=== PATIENT | male | born 1955 | race Caucasian/White ===

== ENCOUNTER 2016-05-11 08:54 | Emergency (ER) | payer MEDICAID, MEDICARE ==
[~2016-05-11] VITALS: Ht 167.6 cm; Wt 72.7 kg
[~2016-05-11 08:54] MED LIST: ASPI-973 PO; CARI350T PO; HYDR-4003 PO; IBUP-1827 PO; OMEP20TA86 PO; OXYC1TAB24 PO; TAMS0.4C98 PO
[2016-05-11 08:57] VITALS: BP 170/102; PULSE 98; RESP 18; O2SAT 97
[2016-05-11 10:01] LABS: BASOPHILS % (AUTO) 0.3 % (0-3); EOSINOPHILS % (AUTO) 0.9 % (0-5); MONOCYTES % (AUTO) 6.8 % (4-12); Mean Corpuscular Hemoglobin 29.2 pg (27.0-35.0); Mean Corpuscular Volume 83.7 fL (81-100); NEUTROPHILS % (AUTO) 70.4 % (40-74); Platelet Count 272 bil/L (150-400)
[2016-05-11 10:24] LABS: TROPONIN T 0.01 ug/L (0.0-0.011)
--- NOTE | 2016-05-11 10:31 | DRSVH ---
PROCEDURE: X-RAY CHEST, TWO VIEWS ([id number]) INDICATIONS: chest pain TECHNIQUE: 2 views of the chest were acquired. COMPARISON: None. FINDINGS: Surgical changes and devices: None. Lungs and pleura: No pleural effusions or pneumothorax. Lungs are clear. Mediastinum: Mediastinal contours are normal. Heart size is normal. Bones and chest wall: No suspicious bony abnormalities. Soft tissues appear unremarkable. IMPRESSION: No abnormalities found. Dictated by: Isidro Khoury M.D. on 05/11/2016 at 10:29 Approved by: Isidro Khoury M.D. on 05/11/2016 at 10:29
[2016-05-11 10:35] LABS: Magnesium 1.7 mg/dL (1.6-2.6)
[2016-05-11 11:43] VITALS: BP 168/72; PULSE 68; RESP 16; O2SAT 99
--- NOTE | 2016-05-11 11:52 | ED.REPORT ---
HPI-General Illness Date of Service May 11, 2016 ED Provider: EdgardoAmish DO 60yoM with past medical history remarkable for PVD with vascular stenting and revisions to his right leg with chronic claudication presents with increasing leg discomfort as well as chest pain for the last week or more. The patient states that he spoke with his doctor Rudi Schofield DO today and was told to come to the hospital for medical evaluation because of the sharp tingling pain in his head and chest. The sharp pain in his head and chest only lasts 15 seconds at a time and no not occur at the same time nor does it appears to be not related to movement or exertion. The patient states that he has struggled with worsening claudication in his legs the last month since his stent was "lasered" open last spring. His leg pain has been worse since his dog and he carried him, stating that the weight of carrying his 70lb boxer was to much. The patient states that his has swelling in his upper inner thigh since his last surgery, and it is painful to sit on causing him to not want to drive to [place] to be seen by his vascular surgeon today. The patient denies any previous history of heart disease but states that he was suppose to be on a cholesterol lowering medication but it makes him sick. The patient states that over the last several months he has noticed random vision changes described as "kaleidoscope" which turns to dim and then total loss of vision typically only in his right eye, but resolves within seconds after blinking. The patient denies any worsening shortness of breath, nausea, vomiting. The patient is a difficult historian and describes anxiety attacks that feel like anxiety. He states that his chest pain and head pain feel different than his normal anxiety attacks. Nursing Notes Stated Complaint: CHEST PAINS Chief Complaint: General Complaint Nursing Notes Reviewed: Yes Allergies: Coded Allergies: codeine (Verified Allergy, Unknown, UNKNOWN, 08/13/15) sertraline (Verified Adverse Reaction, Severe, SEVERE PALPITATIONS, ) Scheduled Aspirin (Aspirin) 325 Mg Tablet 325 MG PO DAILY Tamsulosin (Flomax) 0.4 Mg Capsule 0.4 MG PO DAILY Scheduled PRN Carisoprodol (Soma) 350 Mg Tablet 350 MG PO TID PRN PRN PRN Hydrocodone-Acetaminophen 5-325 mg (Hydrocodone-Acetaminophen 5-325 mg) 1 Each Tablet 1 TABLET PO Q4H PRN PRN For Pain Omeprazole (Omeprazole) 20 Mg Tablet.dr 20 MG PO DAILY PRN PRN PRN oxyCODONE-Acetaminophen 5-325 mg (oxyCODONE-Acetaminophen 5-325 mg) 1 Each Tablet 1 TAB PO Q4H PRN PRN For Pain General Time Seen by MD: 06:15 Chief Complaint Chest pain, Other (Leg claudication) Hx Obtained From: Patient Arrived By: Walk-in Sudden in Onset?: No Onset Occurred: 2 days ago Symptom Duration: Waxes and wanes Location: : Chest: Head: Leg right Severity: Current: Mild Severity: Maximum: Moderate Recent Healthcare: Recent doctor visit Similar Sx Previous: Yes Past Medical History Past Medical History PVD Prostate Cancer Chronic Neck Pain Insomnia Past Surgical History [facility] preformed by surgeon at [facility] Reports: Prostatectomy Smoking History Former Smoker Review of Systems Complete sys rev & neg: except as marked. Physical Exam Vital Signs Vital Signs Date Time Temp Pulse Resp B/P Pulse Ox O2 Delivery O2 Flow Rate FiO2 05/11/16 12:51 36.7 69 16 168/72 97 Room Air 05/11/16 11:43 36.8 68 16 168/72 99 Room Air 05/11/16 08:57 36.6 98 18 170/102 97 Room Air Initial VS: Reviewed General/Constitutional: Well-developed, Well-nourished Head / Eyes: Atraumatic, Normocephalic, PERRL ENT: Mucous membranes moist, Conjunctiva normal, No scleral icterus Neck: Supple, Non-tender, Full range of motion Respiratory: Breath sounds normal, Clear to auscultation, No respiratory distress Cardiovascular: Regular rate & rhythm, Heart sounds normal, Intact distal pulses Abdomen / GI: Soft, Non-tender, No guarding, No rebound, No distention Back: No CVA tenderness Lymphatic: No lymphadenopathy Extremities: Vascular intact, Neuro intact, No tenderness Skin: Warm, Dry, No cyanosis Neurologic: Alert, Oriented, Nonfocal Psychiatric: Mood/affect normal, Behavior normal Lower Extremity / Pelvis / MS: Inspection NL, Full range of motion, No swelling , Non-tender, No erythema, Neurologic intact, Vascular intact, No edema patient has no clinical signs of DVT or arterial blackage. Neurologic: Oriented X3, Speech NL, CN II - XII intact, Cerebellar NL, Memory NL, Gait NL gait was normal without assistance Strength 5/5 in upper and lower extremities No disdiadokokinesia noted Psychiatric: Affect NL, Mood NL Abnormal Thinking / Perception: Positive: Insight abnormal (poor historian), Loose associations Interpretation & Diagnostics Lab Results Interpretation Result Diagram: 05/11/16 0955 05/11/16 0955 Test 05/11/16 09:55 05/11/16 11:57 White Blood Count 9.0th/mm3 (3.8-10.1) Red Blood Count 5.14mil/mm3 (4.40-5.80) Hemoglobin 15.0g/dL (13.8-17.2) Hematocrit 43.0% (41.0-50.0) Mean Corpuscular Volume 83.7fL (81-100) Mean Corpuscular Hemoglobin 29.2pg (27.0-35.0) Mean Corpuscular Hemoglobin Concent 34.9% (32.0-37.0) Red Cell Distribution Width 14.8% (12.3-15.4) Platelet Count 272bil/L (150-400) Neutrophils (%) (Auto) 70.4% (40-74) Lymphocytes (%) (Auto) 21.5% (14-46) Monocytes (%) (Auto) 6.8% (4-12) Eosinophils (%) (Auto) 0.9% (0-5) Basophils (%) (Auto) 0.3% (0-3) D-Dimer < 0.5mg/L (<0.50) Sodium Level 139mEq/L (134-144) Potassium Level 3.8mEq/L (3.5-5.2) Chloride Level 102mEq/L (97-108) Carbon Dioxide Level 21mmol/L (18-29) Blood Urea Nitrogen 14mg/dL (8-27) Creatinine 0.56mg/dL (0.76-1.27) Estimat Glomerular Filtration Rate 158mL/min (>59) Glucose Level 136mg/dL (60-99) Calcium Level 8.9mg/dL (8.5-10.1) Magnesium Level 1.7mg/dL (1.6-2.6) Total Bilirubin 0.3mg/dL (0.0-1.2) Aspartate Amino Transf (AST/SGOT) 20U/L (0-50) Alanine Aminotransferase (ALT/SGPT) 21U/L (0-44) Alkaline Phosphatase 102U/L (25-160) Troponin T 0.010ug/L (0.0-0.011) Pro-B-Type Natriuretic Peptide 51.08pg/mL (0-210) Total Protein 7.7g/dL (6.4-8.4) Albumin 4.5g/dL (3.4-5.0) Hold Urine Received (Received) US Focused Lower Ext Venous Venous and Arterial with report given by US tech and radiologist states that no DVT, arteries are patent including stenting Exam Performed by: Radiologist Clinical Category: Symptom-based Exam Interpreted by: Radiologist Interpretation: No evid deep vein thromb Re-Eval/Medical Decision Med Decision/Clinical Course History is difficult to follow with complaints from head to toe with chief complaint being leg. Life threatening conditions were ruled out including [place] with negative trops and negative EKG, DVT/PE with DDimer and US, stroke was negative on CN exam and strength testing. His PCP was contacted and discussed having this patient seen for further head and neck imaging as an outpatient given the patient's description of history of vision changes. PCP will discuss with patient his need to follow up with his vascular surgeon Vasquez Mendez M.D. at [place]. PCP stated that he had patient come to ED today for risk of PVD in right leg. Attending note: Patient arrives with a host of wandering complaints. There is no evidence of vascular occlusion to the leg and his symptoms do not seem to represent significant claudication, there is no evidence of acute coronary syndrome. No reported visual changes are remote and have not been happening recently, his primary care doctor was contacted who agrees to follow these up for further head and neck imaging. He will be discharged. Discharge & Departure Primary Impression: PVD (peripheral vascular disease) with claudication Disposition: Home Discharge Condition All VS Reviewed: Yes Condition: Stable Patient Instructions: Migraine Headache (ED), Peripheral Artery Disease (ED) Additional Instructions: During your visit to [facility] Emergency Department we obtained blood work for heart attacks, infectious markers, hemoglobin levels, and electrolytes. We obtained US imaging of your leg and xray of your chest All your lab values were within normal limits and your imaging showed no acute processes or abnormalities. Given your history of vascular disease and your constellation of symptoms it is important that you follow up with your PCP Rudi Schofield D.O. as soon as possible. I have spoken with him and he understands your current situation. Your vision changes could be a sign of a more serious condition which will need to be followed up as an outpatient. Our recommendations are that you take a full dose Aspirin 325mg daily with food until seen by your PCP. Do not hesitate to call emergency services or your primary care physician if you experience any of the following. -High unrelenting fevers. -Uncontrolled vomiting. -Severe hypertension. -Syncope or loss of consciousness -Changes in vision -Trouble Speaking -Weakness or poor coordination on one side of your body -Chest pain or severe shortness of breath. Follow up with your primary care physician in as soon as possible following your emergency department visit for medication checks, head and neck imaging, and general well-being. Follow up with your vascular surgeon in 1-2 weeks following your emergency department visit for medication checks and general well-being. Referrals: Rudi Schofield MD (PCP) copies to: Rudi Schofield MD, NICHOLAS K DO May 11, 2016 11:51 Amish Reynoso DO May 11, 2016 14:43
[2016-05-11] MEDS ORDERED: ASPI325T32 PO (12:33)
[2016-05-11 12:51] VITALS: BP 168/72; PULSE 69; RESP 16; O2SAT 97
--- NOTE | 2016-05-12 09:53 | DRSVH ---
PROCEDURE: US DUPLEX DOPPLER UNILATERAL LEG ARTERIES, RIGHT INDICATIONS: claudication TECHNIQUE: Color and pulse Doppler interrogation was performed of the right lower extremity arterial system, wit h image documentation. COMPARISON: None. FINDINGS: Vascular Ultrasound Procedure Report Findings(Artery of Lower Extremity)(Right) Common Femoral Artery(Distal) Velocity: 121.50 cm/s Profunda Femoris Artery(Proximal) Velocity: 84.20 cm/s Superficial Femoral Artery(Proximal) Velocity: 136.70 cm/s Superficial Femoral Artery(Mid-longitudinal) Velocity: 102.50 cm/s Superficial Femoral Artery(Distal) Velocity: 112.40 cm/s Popliteal Artery(Mid-longitudinal) Velocity: 38.50 cm/s, 63.40 cm/s Posterior Tibial Artery(Distal) Velocity: 18 cm/s Dorsalis Pedis Artery(Distal) Velocity: 54.60 cm/s Greyscale findings: Superficial femoral artery stents present. IMPRESSION: No hemodynamically significant right lower quadrant stenosis. Dictated by: Dean Meléndez Shaheen Interpreted: Isidro Khoury MD on 05/12/2016 at 8:17 Transcribed by: SANJAY on 05/12/2016 at 9:52 Approved by: Isidro Khoury M.D. on 05/12/2016 at 13:25
== END 2016-05-11 12:52 | disposition home or self-care (01) ==
LOC: SED 08:54
DX: I70.211 Atherosclerosis of native arteries of extremities with intermittent claudication, right leg (principal); R07.9 Chest pain, unspecified; R51 Headache; H53.121 Transient visual loss, right eye; E78.5 Hyperlipidemia, unspecified; I10 Essential (primary) hypertension; Z95.818 Presence of other cardiac implants and grafts; Z87.891 Personal history of nicotine dependence; Z79.82 Long term (current) use of aspirin; Z88.5 Allergy status to narcotic agent; Z88.8 Allergy status to other drugs, medicaments and biological substances